=== PATIENT | female | born 1960 | race Caucasian/White ===

== ENCOUNTER 2021-06-20 07:23 | Outpatient (CLI) | payer SELFPAY ==
[2021-06-20 07:25] VITALS: BP 146/79; PULSE 64; RESP 16; TEMP 36.6; O2SAT 98
[2021-06-20 07:50] VITALS: BP 136/81; PULSE 53; RESP 17; TEMP 36.6; O2SAT 98; BMI 23.2
[2021-06-20 08:40] VITALS: BP 153/83; PULSE 52; RESP 17; TEMP 36.7; O2SAT 98
[2021-06-20 09:32] VITALS: BP 136/81; PULSE 53; RESP 17; TEMP 36.6; O2SAT 98
== END 2021-06-20 07:24 | disposition home or self-care (01) ==
PROVIDERS: PCP Family Medicine; Visit Provider Family Medicine
DX: U07.1 COVID-19 (principal)
CPT/HCPCS: 96365

== ENCOUNTER → 2025-02-25 09:36 | Outpatient (BNVA) | payer MEDICAID, SELFPAY | PROVIDERS: PCP Family Medicine; Visit Provider Family Medicine | DX: G89.29 Other chronic pain (principal); M19.90 Unspecified osteoarthritis, unspecified site; M62.838 Other muscle spasm | CPT/HCPCS: 80053; 80061; 85025 ==